=== PATIENT | male | born 1960 | race Caucasian/White ===

== ENCOUNTER → 2020-10-07 | Outpatient (CLI) | payer OTHER ==
[2020-10-07 16:48] LABS: BASO % 1 % (0-3); EOS # 0.2 x10^3/uL (0.0-0.7); EOS % 3 % (0-3); HEMATOCRIT 49.4 % (39.0-53.0); HEMOGLOBIN 16.6 g/dL (13.0-17.5); LYMPH # 1.4 x10^3/uL (1.0-4.8); LYMPH % 22 % (24-48); MEAN CORPUSCULAR HEMOGLOBIN 34 pg (25-35); MEAN CORPUSCULAR HGB CONC 34 g/dL (31-37); MEAN CORPUSCULAR VOLUME 102 fL (79-100); MONO # 0.5 x10^3/uL (0.0-1.1); MONO % 8 % (0-9); NEUT # 4.4 x10^3uL (1.8-7.7); NEUT % 67 % (31-73); PLATELET COUNT 219 x10^3/uL (140-400); RED BLOOD COUNT 4.85 x10^6/uL (4.30-5.70); RED CELL DISTRIBUTION WIDTH 13.5 % (11.5-14.5); WHITE BLOOD COUNT 6.5 x10^3/uL (4.0-11.0)
[2020-10-07 17:07] LABS: ALBUMIN 4.4 g/dL (3.4-5.0); ALBUMIN/GLOBULIN RATIO 1.2 (1.0-1.7); CALCIUM 9.2 mg/dL (8.5-10.1); GFR 76.7; POTASSIUM 3.6 mmol/L (3.5-5.1); TOTAL BILIRUBIN 0.4 mg/dL (0.2-1.0); TOTAL PROTEIN 8.1 g/dL (6.4-8.2)
== END ==
LOC: LAB 16:19
PROVIDERS: ATTEND Family Medicine
DX: Z12.5 Encounter for screening for malignant neoplasm of prostate (principal); R13.19 Other dysphagia; L65.9 Nonscarring hair loss, unspecified; R63.5 Abnormal weight gain
CPT/HCPCS: 36415; 80053; 84443; 85025; G0103

== ENCOUNTER → 2021-09-29 | Outpatient (CLI) | payer OTHER ==
[2021-09-29 18:14] LABS: BASO # 0.2 x10^3/uL (0.0-0.2); BASO % 2 % (0-3); EOS # 0.4 x10^3/uL (0.0-0.7); EOS % 3 % (0-3); HEMATOCRIT 50.7 % (39.0-53.0); HEMOGLOBIN 17.3 g/dL (13.0-17.5); LYMPH # 1.3 x10^3/uL (1.0-4.8); LYMPH % 11 % (24-48); MEAN CORPUSCULAR HEMOGLOBIN 34 pg (25-35); MEAN CORPUSCULAR HGB CONC 34 g/dL (31-37); MEAN CORPUSCULAR VOLUME 101 fL (79-100); MONO # 0.5 x10^3/uL (0.0-1.1); MONO % 4 % (0-9); NEUT # 9.4 x10^3uL (1.8-7.7); NEUT % 80 % (31-73); PLATELET COUNT 250 x10^3/uL (140-400); RED BLOOD COUNT 5.04 x10^6/uL (4.30-5.70); RED CELL DISTRIBUTION WIDTH 13.4 % (11.5-14.5); WHITE BLOOD COUNT 11.8 x10^3/uL (4.0-11.0)
[2021-09-29 18:35] LABS: ALBUMIN 4.2 g/dL (3.4-5.0); ALBUMIN/GLOBULIN RATIO 1.1 (1.0-1.7); C REACTIVE PROTEIN 2.8 mg/L (0-3.3); GFR 76.5; POTASSIUM 3.3 mmol/L (3.5-5.1); TOTAL BILIRUBIN 0.5 mg/dL (0.2-1.0)
[2021-09-29 19:59] LABS: CLARITY,URINE CLEAR; COLOR,URINE YELLOW; GLUCOSE,URINE NEG (NEG); NITRITE,URINE NEG (NEG); RBC,URINE 0 /HPF (0-2); UROBILINOGEN,URINE 0.2 mg/dL (0.2 mg/dL)
[2021-09-29 20:00] LABS: BACTERIA,URINE 0 /HPF (0-FEW)
[2021-09-30 18:24] LABS: CHOLESTEROL/HDL RATIO 5.8; FREE T4 0.87 ng/dL (0.76-1.46); THYROID STIM HORMONE (TSH) 3.783 uIU/mL (0.358-3.740)
[2021-10-01 14:09] LABS: PSA FREE 0.42 ng/mL; PSA TOTAL 4.2 ng/mL (0.0-4.0)
== END ==
LOC: LAB 17:36
PROVIDERS: ATTEND Family Medicine
DX: R07.1 Chest pain on breathing (principal); J18.8 Other pneumonia, unspecified organism; R63.5 Abnormal weight gain; R35.1 Nocturia; Z80.0 Family history of malignant neoplasm of digestive organs
CPT/HCPCS: 36415; 80053; 80061; 81001; 82550; 83880; 84153; 84154; 84439; 84443; 84484; 85025; 86140

== ENCOUNTER → 2021-10-14 | Outpatient (CLI) | payer OTHER ==
[~2021-10-14] MED LIST: IOHEXOL 240 MG/ML 50ML VIAL. PO ONE; IOHEXOL 300 MG/ML 50 ML VIAL. ONE; IOHEXOL 300 MG/ML 50 ML VIAL. PO ONE; IOHEXOL 300 MG/ML 75 ML VIAL. IV ONE
--- NOTE | 2021-10-14 13:23 | RAD ---
EXAMINATION: CT chest with IV contrast. CT abdomen and pelvis with and without IV contrast. INDICATION:61 years, Male, chest pain, epigastric pain. Abnormal weight gain. TECHNIQUE: Axial CT images of the chest, abdomen and pelvis were obtained. Coronal and sagittal refor matted performed. COMPARISON: None. Exposure: One or more of the following individualized dose reduction techniques were utilized for thi s examination: 1. Automated exposure control 2. Adjustment of the mA and/or kV according to patient size 3. Use of iterative reconstruction technique. FINDINGS: CHEST: Normal cardiac size with no pericardial effusion. Moderate coronary artery atherosclerotic calcificat ions. Normal caliber thoracic aorta and pulmonary arteries. No lymphadenopathy in the chest by size c riteria. Unremarkable thyroid and esophagus. Central airways are patent. Dependent subsegmental atelectasis in bibasilar lungs. No focal consolida tion, pleural effusion or pneumothorax. Branching shape lobulated opacities in the medial aspect of l eft lower lobe, the largest measures 5.3 x 1.3 cm (series 6 image 43). Scattered sub-5 mm pulmonary n odule in the right upper and middle lobes, the largest measures 3 mm. ABDOMEN/PELVIS: Mild hepatomegaly with diffuse steatosis. No suspicious focal hepatic lesion. Gallbladder, biliary du cts, spleen, pancreas, adrenal glands and kidneys. No bowel dilation. Colonic diverticulosis without acute diverticulitis. Normal appendix. Patent abdominal vasculatures. No pneumoperitoneum or ascites. No lymphadenopathy. Unremarkable bladder and prostate. MUSCULOSKELETAL STRUCTURES: Moderate size left and small size right fat-containing inguinal hernias. Small size fat-containing um bilical hernia. No acute osseous process lesion. Multilevel degenerative changes in the spine, worst at L4-5. IMPRESSION: 1. Branching shape loculated opacities in the medial aspect of the left lower lobe measuring up to 5 .3 cm. Findings nonspecific, could represent bronchocele with mucoid impaction seen in infectious/inf lammatory process or less likely neoplastic process such as bronchial carcinoid. Consider either furt her evaluation with bronchoscopy and/or 3 months follow-up with CT chest. 2. Scattered sub-5 mm pulmonary nodules in the right upper and middle lobes, nonspecific. Attention follow-up examination. 3. Mild hepatomegaly with diffuse steatosis. 4. Colonic diverticulosis. Electronically signed by: Neno Hernandez MD (10/14/2021 1:20 PM) [facility]
== END ==
LOC: CT 08:07
PROVIDERS: ATTEND Family Medicine
DX: R91.8 Other nonspecific abnormal finding of lung field (principal); K57.30 Diverticulosis of large intestine without perforation or abscess without bleeding; R16.0 Hepatomegaly, not elsewhere classified; K76.0 Fatty (change of) liver, not elsewhere classified; I25.10 Atherosclerotic heart disease of native coronary artery without angina pectoris; K42.9 Umbilical hernia without obstruction or gangrene; K40.90 Unilateral inguinal hernia, without obstruction or gangrene, not specified as recurrent; M47.816 Spondylosis without myelopathy or radiculopathy, lumbar region; R10.13 Epigastric pain; R63.5 Abnormal weight gain; Z88.0 Allergy status to penicillin
CPT/HCPCS: 71260; 74176; 74177; Q9967

== ENCOUNTER → 2021-11-11 | Outpatient (CLI) | payer OTHER ==
[2021-11-11 12:52] LABS: BASO # 0.1 x10^3/uL (0.0-0.2); BASO % 1 % (0-3); EOS # 1.2 x10^3/uL (0.0-0.7); EOS % 14 % (0-3); HEMATOCRIT 44.9 % (39.0-53.0); HEMOGLOBIN 15.2 g/dL (13.0-17.5); LYMPH # 1.5 x10^3/uL (1.0-4.8); LYMPH % 17 % (24-48); MEAN CORPUSCULAR HEMOGLOBIN 34 pg (25-35); MEAN CORPUSCULAR HGB CONC 34 g/dL (31-37); MEAN CORPUSCULAR VOLUME 101 fL (79-100); MONO # 0.4 x10^3/uL (0.0-1.1); MONO % 5 % (0-9); NEUT # 5.5 x10^3uL (1.8-7.7); NEUT % 64 % (31-73); PLATELET COUNT 218 x10^3/uL (140-400); RED BLOOD COUNT 4.45 x10^6/uL (4.30-5.70); RED CELL DISTRIBUTION WIDTH 13.3 % (11.5-14.5); WHITE BLOOD COUNT 8.5 x10^3/uL (4.0-11.0)
[2021-11-11 22:10] LABS: RHEUMATOID FACTOR 10.8 IU/mL (<14.0)
== END ==
LOC: LAB 12:17
PROVIDERS: ATTEND Family Medicine
DX: M13.0 Polyarthritis, unspecified (principal)
CPT/HCPCS: 36415; 82784; 85025; 86140; 86431

== ENCOUNTER → 2021-11-19 | Outpatient (CLI) | payer OTHER ==
--- NOTE | 2021-11-19 08:34 | RAD ---
EXAMINATION: Bilateral lower extremity duplex venous ultrasound. TECHNIQUE: DVT protocol. Multiple sonographic images with color Doppler and waveform interrogation we re performed of the lower extremity veins, bilaterally, with compression and augmentation maneuvers. INDICATION: 61 years Male, Bilateral leg SWELLING, PAIN BLE. FINDINGS: The lower extremity veins from the common femoral veins to below the knee veins were examin ed with normal color-flow, compressibility and normal waveform demonstrated. IMPRESSION: No evidence of DVT in either lower extremity. Electronically signed by: Alexandr Solomon MD (11/19/2021 8:32 AM) [id number]
== END ==
LOC: US 07:24
PROVIDERS: ATTEND Family Medicine
DX: I82.403 Acute embolism and thrombosis of unspecified deep veins of lower extremity, bilateral (principal)
CPT/HCPCS: 93970

== ENCOUNTER → 2021-11-25 | Outpatient (CLI) | payer OTHER ==
--- NOTE | 2021-11-25 10:19 | CARD ---
MR#: [id number] Date of Study: 11/25/2021 Ordering Physician: UNA KAUR, Referring Physician: UNA KAUR, Tech: Hardy Santamaria [facility] APPROVED REPORT EXAM: Two-dimensional and M-mode echocardiogram with Doppler and color Doppler. Other Information Quality : AverageHR: 99bpm Rhythm : NSR INDICATION Dyspnea RISK FACTORS Hypertension Hyperlipidemia 2D DIMENSIONS Left Atrium(2D)3.6 (1.6-4.0cm)IVSd1.0 (0.7-1.1cm) Aortic Root(2D)3.6 (2.0-3.7cm)LVDd4.8 (3.9-5.9cm) LVOT Diameter2.3 (1.8-2.4cm)PWd1.0 (0.7-1.1cm) LVDs2.4 (2.5-4.0cm)FS (%) 49.0 % SV85.5 mlLVEF(%)80.3 (>50%) Aortic Valve AoV Peak Gino.121.0cm/sAoV VTI21.7cm AO Peak GR.5.9mmHgLVOT Peak Gino.102.8cm/s LVOT VTI 19.31cmAO Mean GR.3mmHg TRINO (VMAX)3.39yn6KJM (VTI)3.58cm2 Mitral Valve MV E Uxeggizc63.9cm/sMV DECEL [id number] MV A Rirbkmcz174.0cm/sE/A Ratio0.9 Pulmonary Valve PV Peak Gewfayqu694.5cm/sPV Peak Grad.6mmHg Tricuspid Valve TR P. Nzwoczvo775ig/sTR Peak Gr.23mmHg Pulmonary Vein S1 Rgqbnkyv13.3cm/sD2 Ahutpmmm70.6cm/s LEFT VENTRICLE The left ventricle is normal size. There is normal left ventricular wall thickness. The left ventricu lar systolic function is normal. The ejection fraction is 55-60%. There is normal LV segmental wall m otion. Transmitral Doppler flow pattern is Grade I-abnormal relaxation pattern. No left ventricle thr ombus noted on this study. There is no ventricular septal defect visualized. There is no left ventric ular aneurysm. There is no mass noted in the left ventricle. RIGHT VENTRICLE The right ventricle is normal size. There is normal right ventricular wall thickness. The right ventr icular systolic function is normal. ATRIA The left atrium size is normal. The right atrium size is normal. The interatrial septum is intact wit h no evidence for an atrial septal defect or patent foramen ovale as noted on 2-D or Doppler imaging. AORTIC VALVE The aortic valve is normal in structure and function. Doppler and Color Flow revealed no significant aortic regurgitation. There is no significant aortic valvular stenosis. There is no aortic valvular v egetation. MITRAL VALVE The mitral valve is normal in structure and function. There is no evidence of mitral valve prolapse. There is no mitral valve stenosis. Doppler and Color Flow revealed no mitral valve regurgitation note d. TRICUSPID VALVE The tricuspid valve is normal in structure and function. Doppler and Color Flow revealed trace tricus pid regurgitation. The PA pressure was estimated at 28 mmHg. There is no tricuspid valve prolapse or vegetation. There is no tricuspid valve stenosis. PULMONIC VALVE The pulmonary valve is normal in structure and function. Doppler and Color Flow revealed no pulmonic valvular regurgitation. There is no pulmonic valvular stenosis. GREAT VESSELS The aortic root is normal in size. The ascending aorta is normal in size. The pulmonary artery is nor mal. The IVC is not well seen. PERICARDIAL EFFUSION There is no pleural effusion. There is no evidence of significant pericardial effusion. Critical Notification Critical Value: No <Conclusion> The left ventricular systolic function is normal. The ejection fraction is 55-60%. There is normal LV segmental wall motion. Transmitral Doppler flow pattern is Grade I-abnormal relaxation pattern. Trace tricuspid regurgitation. The PA pressure was estimated at 28 mmHg. There is no evidence of significant pericardial effusion. Signed by : Philipp Gustafson, Electronically Approved : 11/25/2021 10:19:14
== END ==
LOC: ECHO 08:29
PROVIDERS: ATTEND Internal Medicine Cardiovascular Disease
DX: R06.00 Dyspnea, unspecified (principal)
CPT/HCPCS: 93306

== ENCOUNTER → 2021-12-03 | Outpatient (CLI) | payer OTHER ==
--- NOTE | 2021-12-03 09:34 | RAD ---
CT THORAX WO History: Follow-up nodules. Comparison: CT chest 10/14/2021. Technique: Noncontrast CT of the chest. Findings: Assessment is limited by lack of IV contrast. Cardiovascular: Heavy left anterior descending coronary artery calcification. Normal heart size. Mediastinum and lam: No adenopathy. Airways, lungs and pleura: The central airways are patent. There is redemonstrated left lower lobe lo bular branching opacities which demonstrate in the adjacent dilated airway. There has been no signifi cant interval change in size, measuring 4.5 x 1.5 cm at the point of greatest axial dimension (axial 68). Linear atelectasis versus scarring in the right lower lobe appears similar. No new or enlarging pulmonary nodules. No pleural effusion. Upper abdomen: Limited evaluation of the upper abdomen is unremarkable. Osseous structures and soft tissues: Within normal limits for age. Impression: 1. Stable appearance of lobulated branching opacity in the posterior segment left lower lobe which a ppears to be filling dilated airways and favored to represent benign process such as mucoid impaction . Recommend 6 month follow-up noncontrast chest CT to ensure continued stability. 2. Heavy coronary artery calcification of the left anterior descending. ------ Exposure: One or more of the following individualized dose reduction techniques were utilized for thi s examination: 1. Automated exposure control 2. Adjustment of the mA and/or kV according to patient size 3. Use of iterative reconstruction technique. Electronically signed by: Brandon Miranda MD (12/03/2021 9:31 AM) [facility]
== END ==
LOC: CT 08:11
PROVIDERS: ATTEND Family Medicine
DX: J18.8 Other pneumonia, unspecified organism (principal); I25.10 Atherosclerotic heart disease of native coronary artery without angina pectoris
CPT/HCPCS: 71250